=== PATIENT | female | born 1970 | race Caucasian/White ===

== ENCOUNTER 2018-05-22 10:44 | Observation (INO) ==
--- NOTE | 2018-05-21 20:21 | MH ---
cc: Dario Wright MD DATE OF ADMISSION: 05/22/2018 ADMITTING DIAGNOSES: Menorrhagia, dysmenorrhea secondary to multiple uterine fibroids. HISTORY OF PRESENT ILLNESS: The patient is a 48-year-old white female, para 1-0-3-1, with history of increasing menstrual flow and menstrual pain over the last 10 months. Her laboratory studies are consistent with perimenopause. Her pelvic ultrasound on 02/13/2018 showed multiple fibroids, a right ovarian cyst and a left ovarian cyst. Endometrial biopsy from 04/26/2018 was normal and she is now admitted for hysterectomy. PAST SURGICAL HISTORY: She had D and C for spontaneous in 1997, breast augmentation at age 22, D and C for miscarriage 2006, she had 1 additional spontaneous that did not require D and C. OB HISTORY: Term delivery 2000, vaginal. MEDICATIONS: Vitamins. ALLERGIES: NONE. TRANSFUSIONS: None. SOCIAL HISTORY: . 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 Alcohol: Occasional. Tobacco: None. Drugs: None. FAMILY HISTORY: Noncontributory. PHYSICAL EXAMINATION: GENERAL: This is a well-nourished, well-developed white female. VITAL SIGNS: Stable. HEENT: Normal. CHEST: Clear. HEART: Regular rate. BREASTS: Symmetrical. ABDOMEN: Benign. PELVIC: Uterus enlarged, about 14-week size. Adnexa nonpalpable. ASSESSMENT: As above. PLAN: She is now admitted for a laparoscopy, probable Lash with bilateral salpingectomy, possible bilateral oophorectomy pending findings at the time of surgery. Risks, benefits, complications, and different recovery times based on the type of incision were explained and accepted. The patient wished to proceed. She is aware that if she has the BSO, she will need estrogen replacement therapy. Dario Wright MD JAW/ct , 07:55 PM , 08:02 PM
[2018-05-22] MEDS ORDERED: Sodium Chlor 0.9% Inj 500 ML IV.CONT ONE (11:45)
[2018-05-22] MEDS ORDERED: Chlorhexidine Gluconate 2% 1 Pack (2 Cloths) TOPICAL ONE (11:45)
[2018-05-22] MEDS ORDERED: Metoprolol Tartrate 25 MG Tablet PO ONE (11:45)
[2018-05-22] MEDS ORDERED: Neostigmine Inj 5 MG/5 ML Syringe IV.PUSH ONE (12:46)
[2018-05-22] MEDS ORDERED: Glycopyrrolate Inj 1 MG/5 ML Syringe IV.PUSH ONE (12:46)
[2018-05-22] MEDS ORDERED: Ketorolac Inj 30 MG/ML (IVP) Vial IV.PUSH ONE (12:46)
[2018-05-22] MEDS ORDERED: Ketorolac Inj 30 MG/ML (IVP) Vial IM ONE (12:46)
[2018-05-22] MEDS ORDERED: Lidocaine PF 1% Inj 5 ML Syringe OTHER ONE (12:46)
[2018-05-22] MEDS ORDERED: HYDROmorphone PF Inj 1 MG/ML Ampul IV.PUSH PRN ×2 (14:07→14:57)
[2018-05-22] MEDS ORDERED: Zolpidem Tartrate 5 MG Tablet PO PRN (14:07)
[2018-05-22] MEDS ORDERED: Ketorolac Inj 30 MG/ML (IVP) Vial ONE (14:10)
[2018-05-22] MEDS ORDERED: Naloxone Inj 0.4 MG/ML Vial ONE (14:33)
[2018-05-22] MEDS ORDERED: Morphine Inj 4 MG/ML Vial ONE (14:51)
[2018-05-22] MEDS ORDERED: fentaNYL Citrate Inj 100 MCG/2 ML Ampul ONE (14:53)
[2018-05-22] MEDS: KCL 20 mEq/D5W/NaCl 0.45% Inj 1,000 ML IV.CONT SCH ×2 (15:07→23:13)
[2018-05-22] MEDS: Ketorolac Inj 30 MG/ML (IVP) Vial IV.PUSH SCH ×2 (15:23→21:58)
--- NOTE | 2018-05-22 15:44 | MP ---
cc: Dario Wright MD DATE OF OPERATION: 05/20/2018 PREOPERATIVE DIAGNOSES: 1. Menorrhagia. 2. Dysmenorrhea secondary to fibroids. POSTOPERATIVE DIAGNOSES: 1. Menorrhagia. 1. Dysmenorrhea secondary to fibroids. PROCEDURE PERFORMED: Laparoscopic supracervical hysterectomy with bilateral salpingectomies. ANESTHESIA: General, ET. SURGEON: Dario Wright MD FIELD SUPPORT REPRESENTATIVE: Josue aGlicia ESTIMATED BLOOD LOSS: About 100 mL FLUIDS: 1 liter crystalloid. OBJECTIVE FINDINGS: Following induction of adequate general endotracheal anesthesia, the patient was prepped and draped supine on the operating table in dorsal lithotomy position in sterile fashion, with the bladder being drained by Callaway catheterization. 2 cm curved infraumbilical incision using a knife to cut down through the skin to the fascia. The fascia opened transversely, stripped from the muscles, rectus muscle split in the midline and the peritoneum opened sharply without incident. The mini GelPort was placed. Laparoscope inserted. A 5 port placed in left lower quadrant and an air seal in the right lower quadrant. Pelvic contents revealed a uterus about 12-14 week size with a large fundal fibroid, normal tubes, normal ovaries, normal cul-de-sac, normal liver edge, normal appendix. Working first on the left, a scalpel was used to take the left mesosalpinx, left round ligament, left broad ligament, left side of the bladder flap and the left uterine vessels. Same on the right. Harmonic scalpel was now used to amputate the fundus from the cervix. The fundus and tube were placed in the pouch. The pouch exteriorized and removed through the pouch without spillage. Irrigation was now performed. No bleeding was evident. Low pressure tests were done in the neutral in Trendelenburg positions. There was no bleeding. The operative site was now coated with Evicel, ureters inspected for good peristalsis bilaterally. The GelPort was now removed and the peritoneum closed with a running 2-0 Vicryl, the fascia with a running locking stitch with 0- vicryl corner to midline tied, subcutaneous closed with running 3-0 Vicryl and the skin with a running subcuticular 3-0 Monocryl. The scope was now reinserted through the lower ports. The GelPort site was observed to be well closed, with no entrapment of tissue or bleeding. Pelvis inspected. There was no bleeding. The scope was now removed. Gas was allowed to escape. The small ports were closed with 3-0 Monocryl. Dermabond applied. All counts were correct and the patient will receive tap block and then go to recovery. MD ELAINE Watkins/leatha/nely , 02:15 PM , 02:27 PM MTDD
[2018-05-22 16:59] LABS: Hematocrit 44.3 % (35.0-46.0); Hemoglobin 14.7 gm/dL (11.6-15.3); Mean Corpuscular HGB Conc 33.2 % (32.0-36.0); Mean Corpuscular Hemoglobin 31.1 pg (27.0-34.0); Mean Corpuscular Volume 93.6 fL (80.0-100.0); Mean Platelet Volume 9.2 fL (7.0-11.0); Platelet Count 156 th/mm3 (150-450); Red Blood Count 4.73 mil/mm3 (4.00-5.30); Red Cell Distribution Width 12.5 % (11.6-17.2); White Blood Count 8.1 th/mm3 (4.0-11.0)
[2018-05-22] MEDS: Docusate Sodium 100 MG Capsule PO SCH (22:49)
[2018-05-23] MEDS: Ketorolac Inj 30 MG/ML (IVP) Vial IV.PUSH SCH ×2 (04:46→09:01)
[2018-05-23 05:44] LABS: Baso % (Auto) 0.1 % (0.0-2.0); Hematocrit 38.7 % (35.0-46.0); Hemoglobin 12.9 gm/dL (11.6-15.3); Lymph # (Auto) 0.8 th/mm3 (1.0-4.8); Lymph % (Auto) 11.1 % (9.0-44.0); Mean Corpuscular HGB Conc 33.4 % (32.0-36.0); Mean Corpuscular Hemoglobin 31.2 pg (27.0-34.0); Mean Corpuscular Volume 93.3 fL (80.0-100.0); Mean Platelet Volume 9.1 fL (7.0-11.0); Mono # (Auto) 0.5 th/mm3 (0.0-0.9); Neut # (Auto) 5.9 th/mm3 (1.8-7.7); Neut % (Auto) 81.8 % (16.0-70.0); Platelet Count 137 th/mm3 (150-450); Red Blood Count 4.15 mil/mm3 (4.00-5.30); Red Cell Distribution Width 12.5 % (11.6-17.2); White Blood Count 7.2 th/mm3 (4.0-11.0)
[2018-05-23 06:10] LABS: Carbon Dioxide 26.4 meq/L (21.0-32.0); Potassium 4.7 meq/L (3.5-5.1)
[2018-05-23 08:16] VITALS: BP 102/53; PULSE 78; RESP 20; TEMP 98.1; O2SAT 96
[2018-05-23] MEDS: Docusate Sodium 100 MG Capsule PO SCH (09:02)
== END 2018-05-23 10:50 | disposition home or self-care (01) ==
LOC: HSDI 10:44 → HOR 10:44 → H1EA 17:53
PROVIDERS: ADMIT Obstetrics & Gynecology; ATTEND Obstetrics & Gynecology
PROC: LAPLASH (ICD-10-PCS; 2018-05-22 12:46)